=== PATIENT | female | born 1995 | race Caucasian/White ===

== ENCOUNTER 2018-12-05 17:15 | Emergency (ER) | payer BC, OTHER ==
[2018-12-05 17:25] VITALS: BP 130/80
--- NOTE | 2018-12-05 17:40 | EDM.PDOC ---
ED HPI GENERAL MEDICAL PROBLEM - General Chief Complaint: Cardiovascular Problem Stated Complaint: CHEST PRESSURE/DIZZY Time Seen by Provider: 12/05/18 17:39 Source of Information: Reports: Patient History Limitations: Reports: No Limitations - History of Present Illness INITIAL COMMENTS - FREE TEXT/NARRATIVE: 23-year-old female presents to the ED complaining of a fluttering sensation in her chest that is making her dizzy/ lightheaded. This occurred while she was in the workplace while seated at her desk. Also developed some diffuse pleuritic left-sided chest pain. Hurts to deep breathe and hurts to cough. She does have a history of asthma and does cough intermittently. She doesn't feel any more wheezy than normal. She has no history of DVT. In any new medications. Denies any fever or chills. Of note she is complaining of fluttering feeling in her chest even when she is on the monitor and the monitor shows sinus rhythm in the 90s. Her ECG also showed sinus rhythm with no arrhythmias at detected. ECG is considered normal. She has a history of mitral valve prolapse syndrome but I could not hear any murmur. Onset: Today Onset Date: 12/05/18 Onset Time: 16:00 Duration: Hour(s): Location: Reports: Chest (Left precordial chest. Fluttering in the central chest.) Quality: Reports: Sharp, Stabbing ( chest.), Other (Pleuritic-like pain in her left anterior) Severity: Moderate Improves with: Reports: Rest Worsens with: Reports: Other (And shallow breathing. Worsened by deep breathing and coughing.) Context: Reports: Other (Symptoms started while she was sitting at her desk at rest.). Denies: Activity, Exercise, Lifting, Sick Contact, Trauma Associated Symptoms: Reports: Chest Pain, Cough (Diffuse left precordial pleuritic chest pain. She is aware also that her chest wall hurts to touch.), Shortness of Breath (Cannot take a full deep breath as it makes the chest pain worse.). Denies: Confusion, cough w sputum (Vocational cough that she has some asthma.), Diaphoresis, Fever/Chills, Headaches, Loss of Appetite, Malaise, Nausea/Vomiting, Rash, Seizure, Syncope Treatments [employer]IVER: Reports: Other (see below) Middle Chest Pain Score (Numeric/FACES): 4 - Related Data Allergies Allergy/AdvReac Type Severity Reaction Status Date / Time tramadol Allergy Itching Verified 12/05/18 17:24 Home Meds: Home Meds Albuterol [Proair HFA] 2 puff INH Q4HR PRN 02/12/15 [History] Albuterol/Ipratropium [DuoNeb 3.0-0.5 MG/3 ML] 3 ml NEB ASDIRECTED PRN 02/12/15 [History] LORazepam [Ativan] 1 mg PO Q8H PRN #15 tablet 02/12/15 [Rx] Fluticasone Propionate [Flovent HFA 110 MCG] 1 puff INH BID #1 puff 02/16/15 [Rx ] Diclofenac Sodium [Voltaren] 50 mg PO BID #16 tab.ec 12/05/18 [Rx] Nuvaring. 1 unit IMPLANT ASDIRECTED 12/05/18 [History] predniSONE [Deltasone] 20 mg PO BID #12 tablet 12/05/18 [Rx] Past Medical History Other Cardiovascular History: mitral valve prolapse Respiratory History: Reports: Asthma Other Musculoskeletal History: Scoliosis Social & Family History - Tobacco Use Smoking Status *Q: Never Smoker Second Hand Smoke Exposure: No - Caffeine Use Caffeine Use: Reports: Coffee - Recreational Drug Use Recreational Drug Use: No - Living Situation & Occupation Living situation: Reports: Single Occupation: Employed ED ROS GENERAL - Review of Systems Review Of Systems: See Below Constitutional: Denies: Fever, Chills, Malaise, Weakness, Fatigue, Weight Loss HEENT: Reports: No Symptoms Respiratory: Reports: Shortness of Breath, Pleuritic Chest Pain. Denies: Wheezing, Cough, Sputum, Hemoptysis (Especially left anterior chest) Cardiovascular: Reports: Chest Pain, Lightheadedness, Other (Feels a fluttering sensation in her mid chest.). Denies: Blood Pressure Problem (See history of present illness), Claudication, Dyspnea on Exertion, Edema, Orthopnea, Palpitations Endocrine: Reports: No Symptoms GI/Abdominal: Reports: No Symptoms : Reports: No Symptoms Musculoskeletal: Reports: No Symptoms Skin: Reports: No Symptoms Neurological: Reports: No Symptoms Psychiatric: Reports: Anxiety Hematologic/Lymphatic: Reports: No Symptoms Immunologic: Reports: No Symptoms (Mildly anxious) ED EXAM, GENERAL - Physical Exam Exam: See Below Exam Limited By: No Limitations General Appearance: Alert, WD/WN, Anxious, Mild Distress Eye Exam: Bilateral Eye: Normal Inspection Neck: Normal Inspection, Supple, Non-Tender, Full Range of Motion. No: Carotid Bruit, Lymphadenopathy (L), Lymphadenopathy (R) Respiratory/Chest: No Respiratory Distress, Lungs Clear, Normal Breath Sounds, Other (Patient is very tender midclavicular line on the left side ribs 34 and 5 were particularly very tender. She had mild tenderness on ribs 3 and 4 on the left side. Suggest a viral. Osteitis.) Cardiovascular: Normal Peripheral Pulses, Regular Rate, Rhythm, No Edema, No Gallop, No Murmur, No Rub Peripheral Pulses: 3+: Carotid (L), Carotid (R), Posterior Tibial (L), Posterior Tibial (R), Dorsalis Pedis (L), Dorsalis Pedis (R) GI/Abdominal: Normal Bowel Sounds, Soft, Non-Tender, No Organomegaly, No Distention, No Abnormal Bruit Back Exam: Normal Inspection, Full Range of Motion. No: CVA Tenderness (L), CVA Tenderness (R) Extremities: Normal Inspection, Normal Range of Motion, Non-Tender, No Pedal Edema Neurological: Alert, Oriented, CN II-XII Intact, Normal Cognition, Normal Gait Psychiatric: Normal Affect Skin Exam: Warm, Dry, Intact, Normal Color, No Rash EKG INTERPRETATION EKG Date: 12/05/18 Time: 17:45 Rhythm: NSR Rate (Beats/Min): 84 [place]: Normal P-Wave: Present QRS: Normal ST-T: Other (T-wave is inverted in V1 only normal variant) QT: Normal EKG Interpretation Comments: Essentially normal ECG Course - Vital Signs Last Recorded V/S: Last Vital Signs Temp 36.6 C 12/05/18 17:19 Pulse 82 12/05/18 17:19 Resp 18 12/05/18 17:19 BP 130/80 12/05/18 17:19 Pulse Ox 100 12/05/18 17:19 - Orders/Labs/Meds Orders: Active Orders 24 hr Category Date Time Status EKG 12 Lead [EKG Documentation Completion] [RC] STAT Care 12/05/18 17:27 Active EKG Documentation Completion [RC] STAT Care 12/05/18 17:39 Active Chest 1V Frontal [CR] Stat Exams 12/05/18 17:39 Taken Labs: Laboratory Tests 12/05/18 12/05/18 12/05/18 Range/Units 17:52 17:52 17:52 WBC 6.27 (3.98-10.04) K/mm3 RBC 4.55 (3.98-5.22) M/mm3 Hgb 13.5 (11.2-15.7) gm/L Hct 40.3 (34.1-44.9) % MCV 88.6 (79.4-94.8) fl MCH 29.7 (25.6-32.2) pg MCHC 33.5 (32.2-35.5) g/dl RDW Std Deviation 40.7 (36.4-46.3) fL Plt Count 245 (182-369) K/mm3 MPV 10.3 (9.4-12.3) fl Neutrophils % (Manual) 63 H (40-60) % Band Neutrophils % 0 (0-10) % Lymphocytes % (Manual) 33 (20-40) % Atypical Lymphs % 0 % Monocytes % (Manual) 4 (2-10) % Eosinophils % (Manual) 0 L (0.7-5.8) % Basophils % (Manual) 0 L (0.1-1.2) Platelet Estimate Adequate RBC Morph Comment Normal D-Dimer, Quantitative < 0.19 L (0.19-0.50) mg/L Sodium 141 (136-145) mEq/L Potassium 3.9 (3.5-5.1) mEq/L Chloride 105 (98-107) mEq/L Carbon Dioxide 24 (21-32) mEq/L Anion Gap 15.9 H (5-15) BUN 16 (7-18) mg/dL Creatinine 0.9 (0.55-1.02) mg/dL Est Cr Clr Drug Dosing 86.73 mL/min Estimated GFR (MDRD) > 60 (>60) mL/min BUN/Creatinine Ratio 17.8 (14-18) Glucose 86 (74-106) mg/dL Calcium 9.5 (8.5-10.1) mg/dL Total Bilirubin 0.6 (0.2-1.0) mg/dL AST 16 (15-37) U/L ALT 23 (14-59) U/L Alkaline Phosphatase 57 (46-116) U/L CK-MB (CK-2) < 0.5 (0-3.6) ng/ml Troponin I < 0.017 (0.00-0.056) ng/mL C-Reactive Protein 1.9 H* (<1.0) mg/dL Total Protein 8.2 (6.4-8.2) g/dl Albumin 3.8 (3.4-5.0) g/dl Globulin 4.4 gm/dL Albumin/Globulin Ratio 0.9 L (1-2) TSH 3rd Generation 1.060 (0.358-3.74) uIU/mL Meds: Medications Discontinued Medications Generic Name Dose Route Start Last Admin Trade Name Freq PRN Reason Stop Dose Admin Dicyclomine HCl 20 mg 12/05/18 18:53 12/05/18 19:05 Bentyl PO 12/05/18 18:54 20 mg ONETIME ONE Administration Ibuprofen 600 mg 12/05/18 18:07 12/05/18 18:22 Motrin PO 12/05/18 18:08 600 mg ONETIME ONE Administration - Radiology Interpretation Free Text/Narrative:: 23-year-old female attends the ED after starting to feel unwell while seated at her desk at work about 1600 hrs. today. Feel a fluttering feeling in her central chest and then developed pleuritic left-sided chest pain associate with feeling dizzy and lightheaded. Associated nausea or vomiting. He denies cough or sputum production. No noted fever or chills. She has a history of asthma which has been well controlled. She recognizes that she has pain in her left anterior chest wall over the ribs. She denies any trauma to this area. Examination confirms that she has marked pain to palpation ribs 34 and 5 on the left side and 3 and 4 on the right side of her chest wall. By history she states she has mitral valve prolapse syndrome. I was unable to hear any murmur associated with the mitral valve listing pulse. Heart is sinus on the monitor in spite of her complaining of some fluttering feeling in her chest. This may be coming from the diaphragm from irritation. Landed she appears to have significant inflammation of her chest wall. Give her Motrin 600 mg by mouth. She will have one view chest x-ray carried out. ECG is already done and shows sinus rhythm with no abnormalities. Have lab work done to include a d-dimer and a CRP. - Re-Assessments/Exams Free Text/Narrative Re-Assessment/Exam: 12/05/18 18:43 Labs are back and reveal a normal white count at 6.27. 63% neutrophils no bands reported. Hemoglobin 13.5 with hematocrit of 40.3. Platelet count is 2 and 45,000. D-dimer is less than 0.19. Sodium 141 with potassium of 3.9. Toward 105 with a bicarbonate 24. And a gap is minimally elevated at 15.9. BUN is 16 with a creatinine of 0.9. GFR remains greater than 60. Glucose is 86. Calcium is 9.5 liver function is normal. CMP CK-MB is pending. Troponin I is less than 0.017. C-reactive protein is 1.9. TSH is 1.06 which is normal. One view chest x-ray is completely normal as well. Pain is mostly chest wall in origin. Most likely viral in origin and she seems to exhibit a periostitis of ribs on both sides were chest just worse on the left side. Plan will be to place her on anti-inflammatory such as Voltaren 50 mg twice a day for 8 days and Deltasone 20 mg a.m. and p.m. for 5 days to relieve inflammation. These medications will be taken with food. Also on consultation with her she still having a bit of fluttering in her central chest. This appears to be coming from diaphragm or esophagus as her residential monitor shows sinus rhythm at 92 with no arrhythmias. Give her Bentyl 20 mg by mouth in an effort to try relieve smooth muscle spasm. Departure - Departure Time of Disposition: 18:54 Disposition: Home, Self-Care 01 Condition: Fair Clinical Impression: Non-cardiac chest pain, Acute chest wall pain Prescriptions: Diclofenac Sodium [Voltaren] 50 mg PO BID #16 tab.ec predniSONE [Deltasone] 20 mg PO BID #12 tablet Instructions: Chest Wall Pain, [id number], Angina Pectoris, [id number] Referrals: PCP,None [Primary Care Provider] - Forms: ED Department Discharge Additional Instructions: Evaluation in the emergency room today in regards to development of a fluttering feeling in your central chest and left precordial chest pain which was quite sharp and stabbing or pleuritic. This means it was made worse by deep breathing and coughing. No associated fever or chills. Examination revealed marked tenderness of the chest wall particularly ribs 3,4 and 5 on the left side and 3 and 4 on the right side of your chest. This suggests a viral infection of the lining of the ribs in this area. This is usually caused by a virus infection such as echo virus or coxsackievirus. Chest x-ray was normal. Heart tracing was normal and monitoring revealed no sign of cardiac arrhythmia or irregularities of the heart to be associated with fluttering in her chest. The fluttering is coming either from the diaphragm itself or the food pipe. Is of no consequence think of it is a nuisance. You're given Bentyl 20 mg tablets time of discharge to try and alleviate fluttering feeling in your lower chest. Treatment for the chest wall pain is anti-inflammatory Voltaren 50 mg twice daily for the next 8 days. Take your first one tonight as they take about a day and a half to start to work well. Second medication is Deltasone 20 mg with breakfast and supper for the next 6 days. Take your first one tonight with supper as well. Takes about 6-8 hours to work. They take Tylenol 650 mg every 4 hours if needed for relief of chest pain as well. Expect gradual improvement in chest wall pain over the next 5 days. Sometimes the chest wall pain can persist for up to 5 weeks before goes away completely. You may use Motrin or Aleve for intermittent chest pain after completing the above medications if needed. Follow -up with personal care physician if any further problems occur - My Orders Last 24 Hours: My Active Orders 12/05/18 17:27 EKG 12 Lead [EKG Documentation Completion] [RC] STAT 12/05/18 17:39 EKG Documentation Completion [RC] STAT Chest 1V Frontal [CR] Stat - Assessment/Plan Last 24 Hours: My Active Orders 12/05/18 17:27 EKG 12 Lead [EKG Documentation Completion] [RC] STAT 12/05/18 17:39 EKG Documentation Completion [RC] STAT Chest 1V Frontal [CR] Stat
[2018-12-05] MEDS ORDERED: Ibuprofen 600 MG Tab PO ONE (18:07)
[2018-12-05] MEDS ORDERED: Dicyclomine 10 MG Cap PO ONE (18:53)
--- NOTE | 2018-12-06 06:49 | CR ---
Chest: Portable view of the chest was obtained. Comparison: Prior chest x-ray of 01/25/16. Heart size and mediastinum are normal. Lungs are clear. Bony structures are unremarkable. Impression: 1. Nothing acute is seen on portable chest x-ray. Diagnostic code #1
== END 2018-12-05 19:09 | disposition home or self-care (01) ==
LOC: JD.ED 17:15
DX: R07.89 Other chest pain (principal); Z88.5 Allergy status to narcotic agent
CPT/HCPCS: 36415; 71045; 80053; 82553; 84443; 84484; 85007; 85027; 85379; 86140; 93005; 99285; A9270; 93010

== ENCOUNTER 2019-07-23 11:07 | Emergency (ER) | payer BC ==
[2019-07-23 11:27] VITALS: BP 145/85; PULSE 88
[2019-07-23] MEDS ORDERED: Sodium Chloride 0.9% 10 ML Syringe FLUSH PRN (11:46)
[2019-07-23] MEDS ORDERED: Sodium Chloride 0.9% 1,000 ML IV ONE (12:10)
[2019-07-23] MEDS ORDERED: cefTRIAXone 1 GM in Sodium Chloride 0.9% 100 ML IV ONE (12:11)
[2019-07-23] MEDS ORDERED: Ondansetron 4 MG/2 ML SDV IVPUSH ONE (12:20)
--- NOTE | 2019-07-23 12:26 | EDM.PDOC ---
ED HPI GENERAL MEDICAL PROBLEM - General Chief Complaint: Genitourinary Problem Stated Complaint: DIZZY,CHILLS,PAIN WHILE URINATING Time Seen by Provider: 07/23/19 11:31 Source of Information: Reports: Patient, RN Notes Reviewed History Limitations: Reports: No Limitations - History of Present Illness INITIAL COMMENTS - FREE TEXT/NARRATIVE: Patient is a 23-year-old female who presents to the ED for the evaluation of a urinary complaint. Patient complains of some dysuria, lower abdominal and pelvic pain with radiation to her lower back and mid back. Patient states that she had a UTI 1 month ago, was given Keflex for this, she took the course as prescribed. She notes that they called her with the culture results, and stated that the Keflex was appropriate. 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 Lower Pelvic Pain Score (Numeric/FACES): 7 - Related Data Allergies Allergy/AdvReac Type Severity Reaction Status Date / Time tramadol Allergy Itching Verified 07/23/19 11:26 Home Meds: Home Meds Albuterol [Proair HFA] 2 puff INH Q4HR PRN 02/12/15 [History] Albuterol/Ipratropium [DuoNeb 3.0-0.5 MG/3 ML] 3 ml NEB ASDIRECTED PRN 02/12/15 [History] LORazepam [Ativan] 1 mg PO Q8H PRN #15 tablet 02/12/15 [Rx] Fluticasone Propionate [Flovent HFA 110 MCG] 1 puff INH BID #1 puff 02/16/15 [Rx ] Diclofenac Sodium [Voltaren] 50 mg PO BID #16 tab.ec 12/05/18 [Rx] Nuvaring. 1 unit IMPLANT ASDIRECTED 12/05/18 [History] predniSONE [Deltasone] 20 mg PO BID #12 tablet 12/05/18 [Rx] Fluconazole [Diflucan] 150 mg PO ONETIME #1 tab 07/23/19 [Rx] levoFLOXacin [Levaquin] 500 mg PO DAILY #10 tab 07/23/19 [Rx] Past Medical History Other Cardiovascular History: mitral valve prolapse Respiratory History: Reports: Asthma Other Musculoskeletal History: Scoliosis Social & Family History - Tobacco Use Smoking Status *Q: Never Smoker - Caffeine Use Caffeine Use: Reports: Coffee, Soda - Recreational Drug Use Recreational Drug Use: No - Living Situation & Occupation Living situation: Reports: Single Occupation: Employed ED ROS GENERAL - Review of Systems Review Of Systems: See Below Constitutional: Reports: Fever, Chills, Malaise HEENT: Reports: No Symptoms Respiratory: Denies: Shortness of Breath Cardiovascular: Denies: Chest Pain Endocrine: Denies: Fatigue GI/Abdominal: Reports: Nausea. Denies: Abdominal Pain, Constipation, Diarrhea, Vomiting : Reports: Dysuria, Flank Pain (Right), Frequency, Pain (pelvic), Urgency Musculoskeletal: Reports: Back Pain (low back) Skin: Reports: No Symptoms Neurological: Reports: No Symptoms Psychiatric: Reports: No Symptoms Hematologic/Lymphatic: Reports: No Symptoms Immunologic: Reports: No Symptoms ED EXAM, RENAL/ - Physical Exam Exam: See Below Exam Limited By: No Limitations General Appearance: Alert, WD/WN, No Apparent Distress Throat/Mouth: Normal Inspection, Normal Lips, Normal Teeth, Normal Gums, Normal Oropharynx, Normal Voice, No Airway Compromise Head: Atraumatic, Normocephalic Respiratory/Chest: No Respiratory Distress, Lungs Clear, Normal Breath Sounds, No Accessory Muscle Use, Chest Non-Tender Cardiovascular: Normal Peripheral Pulses, Regular Rate, Rhythm, No Murmur GI/Abdominal: Normal Bowel Sounds, No Abnormal Bruit, Tender (suprapubic/low pelvic) (Female) Exam: Deferred Back Exam: Normal Inspection, CVA Tenderness (R). No: CVA Tenderness (L) Extremities: Normal Inspection, Normal Capillary Refill Neurological: Alert, Oriented, Normal Cognition, No Motor/Sensory Deficits Psychiatric: Normal Affect, Normal Mood Skin Exam: Warm, Dry, Intact, Normal Color, No Rash Course - Vital Signs Last Recorded V/S: Last Vital Signs Temp 98.5 F 07/23/19 11:23 Pulse 88 07/23/19 11:23 Resp 18 07/23/19 11:23 BP 145/85 H 07/23/19 11:23 Pulse Ox 99 07/23/19 11:23 - Orders/Labs/Meds Orders: Active Orders 24 hr Category Date Time Status Peripheral IV Care [RC] . DIRECTED Care 07/23/19 11:47 Ordered CULTURE URINE [RM] Routine Lab 07/23/19 12:10 Ordered Sodium Chloride 0.9% [Saline Flush] Med 07/23/19 11:46 Ordered 10 ml FLUSH ASDIRECTED PRN Peripheral IV Insertion Adult [OM.PC] Stat Oth 07/23/19 11:46 Ordered Medication Orders Sodium Chloride (Saline Flush) 10 ml FLUSH ASDIRECTED PRN PRN Reason: Keep Vein Open Last Admin: 07/23/19 12:02 Dose: 10 ml Labs: Laboratory Tests 07/23/19 07/23/19 07/23/19 Range/Units 11:36 11:50 11:50 WBC 7.96 (3.98-10.04) K/mm3 RBC 4.76 (3.98-5.22) M/mm3 Hgb 14.4 (11.2-15.7) gm/dl Hct 41.3 (34.1-44.9) % MCV 86.8 (79.4-94.8) fl MCH 30.3 (25.6-32.2) pg MCHC 34.9 (32.2-35.5) g/dl RDW Std Deviation 40.2 (36.4-46.3) fL Plt Count 298 (182-369) K/mm3 MPV 10.8 (9.4-12.3) fl Neutrophils % (Manual) 70 H (40-60) % Band Neutrophils % 0 (0-10) % Lymphocytes % (Manual) 28 (20-40) % Atypical Lymphs % 0 % Monocytes % (Manual) 2 (2-10) % Eosinophils % (Manual) 0 L (0.7-5.8) % Basophils % (Manual) 0 L (0.1-1.2) Platelet Estimate Adequate RBC Morph Comment Normal Sodium 138 (136-145) mEq/L Potassium 3.8 (3.5-5.1) mEq/L Chloride 103 (98-107) mEq/L Carbon Dioxide 24 (21-32) mEq/L Anion Gap 14.8 (5-15) BUN 19 H (7-18) mg/dL Creatinine 0.9 (0.55-1.02) mg/dL Est Cr Clr Drug Dosing 90.23 mL/min Estimated GFR (MDRD) > 60 (>60) mL/min BUN/Creatinine Ratio 21.1 H (14-18) Glucose 88 (74-106) mg/dL Calcium 9.2 (8.5-10.1) mg/dL Total Bilirubin 0.3 (0.2-1.0) mg/dL AST 15 (15-37) U/L ALT 21 (14-59) U/L Alkaline Phosphatase 66 (46-116) U/L C-Reactive Protein 1.7 H* (<1.0) mg/dL Total Protein 8.1 (6.4-8.2) g/dl Albumin 3.8 (3.4-5.0) g/dl Globulin 4.3 gm/dL Albumin/Globulin Ratio 0.9 L (1-2) Urine Color Yellow (Yellow) Urine Appearance Clear (Clear) Urine pH 6.0 (5.0-8.0) Ur Specific [place] 1.025 (1.005-1.030) Urine Protein 2+ H (Negative) Urine Glucose (UA) Negative (Negative) Urine Ketones Negative (Negative) Urine Occult Blood 2+ H (Negative) Urine Nitrite Negative (Negative) Urine Bilirubin Negative (Negative) Urine Urobilinogen 0.2 (0.2-1.0) Ur Leukocyte Esterase 2+ H (Negative) Urine RBC 20-30 H (0-5) /hpf Urine WBC >100 H (0-5) /hpf Ur Squamous Epith Cells 0-5 (0-5) /hpf Urine Bacteria Few (FEW) /hpf Urine Mucus Rare (FEW) /hpf Meds: Medications Generic Name Dose Route Start Last Admin Trade Name Freq PRN Reason Stop Dose Admin Sodium Chloride 10 ml 07/23/19 11:46 07/23/19 12:02 Saline Flush FLUSH 10 ml ASDIRECTED PRN Administration Keep Vein Open Discontinued Medications Generic Name Dose Route Start Last Admin Trade Name Freq PRN Reason Stop Dose Admin Sodium Chloride 1,000 mls @ 999 mls/hr 07/23/19 12:10 07/23/19 12:19 Normal Saline IV 07/23/19 13:10 999 mls/hr ONETIME ONE Administration Ceftriaxone Sodium 1 gm/ 100 mls @ 200 mls/hr 07/23/19 12:11 07/23/19 12:20 Sodium Chloride IV 07/23/19 12:40 200 mls/hr ONETIME ONE Administration Ondansetron HCl 4 mg 07/23/19 12:20 07/23/19 12:23 Zofran IVPUSH 07/23/19 12:21 4 mg ONETIME ONE Administration - Re-Assessments/Exams Free Text/Narrative Re-Assessment/Exam: 07/23/19 12:28 Patient presents to the ED for the evaluation of a possible urinary tract infection. A urine sample is obtained at time of triage, and it does demonstrate a pyelonephritis in nature, IV will be placed in a dose of 1 g Rocephin given for initial management. Urine was sent for culture, plan to send the patient home with Levaquin for outpatient management, did order CBC, CMP, and CRP. Departure - Departure Time of Disposition: 13:44 Disposition: Home, Self-Care 01 Condition: Fair Clinical Impression: Pyelonephritis - Discharge Information *PRESCRIPTION DRUG MONITORING PROGRAM REVIEWED*: No *COPY OF PRESCRIPTION DRUG MONITORING REPORT IN PATIENT MCKENNA: No Prescriptions: Fluconazole [Diflucan] 150 mg PO ONETIME #1 tab levoFLOXacin [Levaquin] 500 mg PO DAILY #10 tab Instructions: Pyelonephritis, Adult, [id number] Referrals: PCP,None [Primary Care Provider] - Forms: ED Department Discharge Additional Instructions: You have been evaluated in the ED for your urinary symptoms. Your urinalysis was consistent with a Pyelonephritis (a kidney infection). Your urine was sent for culture, and you will be notified if you should need a change in your antibiotic. You may take AZO for urinary pain relief. This is available over the counter, and can be attained at any retail store like [employer] or any pharmacy. Please be aware that this medication will make your urine turn orange. You have been given a prescription for Levaquin, 500 mg 1 tablet once daily for 10 days. This has been electronically sent to the Clinic pharmacy located in the [facility]. You were given a prescription for Diflucan as well, as you state that you normally get a yeast infection when on antibiotics. Please increase your oral fluid intake and try to stay adequately hydrated. Please return to the ED if your symptoms change or worsen. - My Orders Last 24 Hours: My Active Orders 07/23/19 11:46 Sodium Chloride 0.9% [Saline Flush] 10 ml FLUSH ASDIRECTED PRN Peripheral IV Insertion Adult [OM.PC] Stat 07/23/19 11:47 Peripheral IV Care [RC] . DIRECTED 07/23/19 12:10 CULTURE URINE [RM] Routine - Assessment/Plan Last 24 Hours: My Active Orders 07/23/19 11:46 Sodium Chloride 0.9% [Saline Flush] 10 ml FLUSH ASDIRECTED PRN Peripheral IV Insertion Adult [OM.PC] Stat 07/23/19 11:47 Peripheral IV Care [RC] . DIRECTED 07/23/19 12:10 CULTURE URINE [RM] Routine
== END 2019-07-23 14:10 | disposition home or self-care (01) ==
LOC: JD.ED 11:07
DX: N12 Tubulo-interstitial nephritis, not specified as acute or chronic (principal); J45.909 Unspecified asthma, uncomplicated; Z79.899 Other long term (current) drug therapy; Z88.5 Allergy status to narcotic agent
CPT/HCPCS: 36415; 80053; 81001; 85007; 85027; 86140; 87086; 87088; 87186; 96361; 96365; 96375; 99284; J0696; J2405; J7030; J7040

== ENCOUNTER 2020-05-05 20:12 | Emergency (ER) | payer BC ==
[2020-05-05 20:31] VITALS: BP 131/92; PULSE 65
[2020-05-05] MEDS ORDERED: Levofloxacin 500 MG Tab PO ONE (21:43)
--- NOTE | 2020-05-05 21:50 | EDM.PDOC ---
ED HPI GENERAL MEDICAL PROBLEM - General Chief Complaint: Genitourinary Problem Stated Complaint: UTI-SENT OVER BY [facility] Time Seen by Provider: 05/05/20 21:30 Source of Information: Reports: Patient, RN Notes Reviewed History Limitations: Reports: No Limitations - History of Present Illness INITIAL COMMENTS - FREE TEXT/NARRATIVE: Patient is a 24-year-old female who presents to the ED for the evaluation of her continuing urinary symptoms. Patient was evaluated at the walk-in clinic on Sunday, and was thought to have a pyelonephritis, and sent home with ciprofloxacin for 5 days. Patient states that she finished a course yesterday, everything seemed to be going well, but she started getting symptoms again today, the dysuria, pelvic pain and pain that kind of radiates into her flanks. She was also treated for a yeast infection at that time. She tried to go back to the walk-in clinic today, but they told her to come to the ER for further management as they would not have access to imaging if she should need it. Patient denies any fevers or chills, cough/shortness of breath, nausea/vomiting/diarrhea at today's visit. Flank Pain Score (Numeric/FACES): 7 - Related Data Allergies Allergy/AdvReac Type Severity Reaction Status Date / Time tramadol Allergy Itching Verified 07/23/19 11:26 Home Meds: Home Meds Albuterol [Proair HFA] 2 puff INH Q4HR PRN 02/12/15 [History] Albuterol/Ipratropium [DuoNeb 3.0-0.5 MG/3 ML] 3 ml NEB ASDIRECTED PRN 02/12/15 [History] LORazepam [Ativan] 1 mg PO Q8H PRN #15 tablet 02/12/15 [Rx] Fluticasone Propionate [Flovent HFA 110 MCG] 1 puff INH BID #1 puff 02/16/15 [Rx] Ciprofloxacin [Ciprofloxacin HCl] 500 mg PO BID #10 tab 05/05/20 [Rx] Past Medical History Other Cardiovascular History: mitral valve prolapse Respiratory History: Reports: Asthma Genitourinary History: Reports: Pyelonephritis, UTI, Recurrent Other Musculoskeletal History: Scoliosis Social & Family History - Family History Family Medical History: Noncontributory - Tobacco Use Smoking Status *Q: Never Smoker Second Hand Smoke Exposure: No - Caffeine Use Caffeine Use: Reports: Coffee, Soda - Living Situation & Occupation Living situation: Reports: Single Occupation: Employed ED ROS GENERAL - Review of Systems Review Of Systems: Comprehensive ROS is negative, except as noted in HPI. ED EXAM, RENAL/ - Physical Exam Exam: See Below Exam Limited By: No Limitations General Appearance: Alert, WD/WN, No Apparent Distress Respiratory/Chest: No Respiratory Distress, Lungs Clear, Normal Breath Sounds, No Accessory Muscle Use, Chest Non-Tender Cardiovascular: Normal Peripheral Pulses, Regular Rate, Rhythm, No Murmur GI/Abdominal: Normal Bowel Sounds, Soft, No Distention, No Mass, Tender (suprapubic tenderness) Back Exam: No: CVA Tenderness (L) (slightly positive), CVA Tenderness (R) (slightly positive) Neurological: Alert, Oriented, Normal Cognition, No Motor/Sensory Deficits Psychiatric: Normal Affect, Normal Mood Skin Exam: Warm, Dry, Intact, Normal Color, No Rash Course - Vital Signs Last Recorded V/S: Last Vital Signs Temp 98.2 F 05/05/20 20:27 Pulse 65 05/05/20 20:27 Resp 16 05/05/20 20:27 BP 131/92 H 05/05/20 20:27 Pulse Ox 99 05/05/20 20:27 - Orders/Labs/Meds Labs: Laboratory Tests 05/05/20 Range/Units 20:40 Urine Color Yellow (Yellow) Urine Appearance Clear (Clear) Urine pH 6.5 (5.0-8.0) Ur Specific [place] 1.025 (1.005-1.030) Urine Protein Negative (Negative) Urine Glucose (UA) Negative (Negative) Urine Ketones Negative (Negative) Urine Occult Blood Negative (Negative) Urine Nitrite Negative (Negative) Urine Bilirubin Negative (Negative) Urine Urobilinogen 0.2 (0.2-1.0) Ur Leukocyte Esterase Negative (Negative) Meds: Medications Discontinued Medications Generic Name Dose Route Start Last Admin Trade Name Sebastian PRN Reason Stop Dose Admin Levofloxacin 500 mg 05/05/20 21:43 Levaquin PO 05/05/20 21:44 ONETIME ONE - Re-Assessments/Exams Free Text/Narrative Re-Assessment/Exam: 05/05/20 21:47 Patient presents to the ED for evaluation of her continuing urinary symptoms, she would not like imaging done at [facility]'s visit, and clinical presentation would also warrant no imaging. We will however continue antibiotics, as if it was pyelonephritis, she should be treated for 10 days. Departure - Departure Time of Disposition: 21:48 Disposition: Home, Self-Care 01 Condition: Good Clinical Impression: Pyelonephritis - Discharge Information *PRESCRIPTION DRUG MONITORING PROGRAM REVIEWED*: No *COPY OF PRESCRIPTION DRUG MONITORING REPORT IN PATIENT MCKENNA: No Prescriptions: Ciprofloxacin [Ciprofloxacin HCl] 500 mg PO BID #10 tab Instructions: Pyelonephritis, Adult, [id number] Referrals: PCP,None [Primary Care Provider] - Additional Instructions: You have been evaluated in the ED for your urinary symptoms. Your urinalysis showed no signs of infection, but you have been on antibiotics for a current UTI. So this is likely why there are no abnormalities. Your symptoms do suggest that you have ongoing problems. You may take AZO for urinary pain relief. This is available over the counter, and can be attained at any retail store like [employer] or any pharmacy. Please be aware that this medication will make your urine turn orange. You have been given a prescription for Ciprofloxacin, 500 mg 1 tablet 2 times a day for 5 days. This has been electronically sent to the [place] pharmacy located in in the [employer] [facility]. You will have to go there tomorrow during business hours, and pick these medications up to start taking as directed. Please increase your oral fluid intake and try to stay adequately hydrated. Please return to the ED if your symptoms change or worsen. Sepsis Event Note (ED) - Evaluation Sepsis Screening Result: No Definite Risk - Focused Exam Vital Signs: Vital Signs Temp Pulse Resp BP Pulse Ox 05/05/20 20:27 98.2 F 65 16 131/92 H 99
== END 2020-05-05 21:58 | disposition home or self-care (01) ==
LOC: JD.ED 20:12
DX: N12 Tubulo-interstitial nephritis, not specified as acute or chronic (principal); J45.909 Unspecified asthma, uncomplicated; M41.9 Scoliosis, unspecified; Z88.5 Allergy status to narcotic agent
CPT/HCPCS: 81003; 99283; A9270-GY